=== PATIENT | male | born 2000 | race Caucasian/White ===

== ENCOUNTER 2023-06-15 20:17 | Inpatient (IN) ==
[2023-06-15] MEDS: Lactated Ringers 1000 ml BAG 1,000 ML IV ONE (21:12)
[2023-06-15 21:28] LABS: ABS Eosinophils 0.1 10^3/uL (0.0-0.5); ABS Lymphocytes 1.4 10^3/uL (1.0-4.8); ABS Monocytes 0.3 10^3/uL (0.0-1.1); ABS Neutrophils 6.1 10^3/uL (1.5-7.6); ABS Nucleated RBC 0.01 10^3/ul; Eosinophil % 1.8 %; Hematocrit 47.4 % (38-53); Hemoglobin 16.3 g/dL (13.2-16.3); Lymphocyte % 17.6 %; Mean Corpuscular Hemoglobin 30.1 pg (27-33); Mean Corpuscular Hgb Conc 34.5 g/dL (31-36); Mean Corpuscular Volume 87.5 fL (80-97); Mean Platelet Volume 7.6 fL (7.5-11.2); Nucleated Red Blood Cells % 0.1 %/100WBC (0.0-0.8); Platelet Count 256 10^3/uL (150-450); Red Blood Count 5.42 10^6/uL (4.06-5.63); Red Cell Distribution Width 12.9 % (12-17); White Blood Count 8.1 10^3/uL (3.6-10.2)
[2023-06-15 21:54] LABS: ALT 11 U/L (7-52); AST 19 U/L (13-39); Acetaminophen < 15 mcg/mL; Albumin 5.2 g/dL (3.2-5.2); Albumin/Globulin Ratio 2.1 (1-3); Alcohol, S < 13 mg/dL (<13); Alkaline Phosphatase 57 U/L (35-149); Anion Gap 7 mmol/L (2-16); Blood Urea Nitrogen 18 mg/dL (6-24); CO2 Carbon Dioxide 26 mmol/L (22-32); Calcium 10.2 mg/dL (8.6-10.3); Chloride 107 mmol/L (101-111); Creatinine, Serum 1.02 mg/dL (0.67-1.17); Globulin 2.5 g/dL (2-4); Glucose 84 mg/dL (70-100); Potassium 3.8 mmol/L (3.5-5.0); Salicylate < 2.50 mg/dL (<30); Sodium 140 mmol/L (135-145); Total Bilirubin 1.9 mg/dL (0.2-1.0); Total Protein 7.7 g/dL (6.4-8.9); eGFR CKD-EPI 107.2 (>60)
[2023-06-15 22:08] LABS: TSH Ultra Thyroid Stim Horm 2.05 mcIU/mL (0.34-5.60)
[2023-06-15 23:01] LABS: Urine Appearance Clear; Urine Bilirubin Negative (Negative); Urine Blood Negative (Negative); Urine Color Light-Yellow; Urine Glucose Negative (Negative); Urine Ketones Negative (Negative); Urine Nitrite Negative (Negative); Urine Protein Trace (Negative); Urine Specific Gravity 1.031 (1.002-1.030); Urine Urobilinogen Negative (Negative); Urine pH 7.5 (5.0-8.0)
[2023-06-16 01:31] LABS: Urine Benzodiazepine Screen None Detected (None Detect); Urine Cannabinoids Screen Presumptive Positive (None Detect)
[2023-06-16 01:32] LABS: Urine Opiates Screen None Detected (None Detect)
[2023-06-16] MEDS ORDERED: Al Hydrox/Mg Hydrox/Simet LIQ 30 ML UDC PO PRN (06:31)
[2023-06-16] MEDS: Vitamin THERAPEUTIC TAB PO SCH (10:49)
[2023-06-19 09:28] VITALS: BP 104/84
[2023-06-19] MEDS: Influenza vaccine *QUAD* *2023-24* 0.5 ML SYRINGE IM ONE (14:26)
== END 2023-06-19 15:00 | disposition home or self-care (01) | DRG 812 ==
LOC: ED 20:17 → EDHOLD 06-16 06:02 → BSU 06-16 07:18
PROVIDERS: ADMIT Psychiatry & Neurology Psychiatry; ATTEND Student in an Organized Health Care Education/Training Program